=== PATIENT | female | born 1980 | race Caucasian/White ===

== ENCOUNTER 2016-07-06 13:35 | Emergency (ER) | payer OTHER, BC ==
[2016-07-06 13:56] VITALS: BP 122/93
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
== END 2016-07-06 14:30 | disposition home or self-care (01) ==
LOC: ER 13:35
DX: S16.1XXA Strain of muscle, fascia and tendon at neck level, initial encounter (principal); M79.1 Myalgia; M54.2 Cervicalgia; M54.9 Dorsalgia, unspecified; R51 Headache; V87.7XXA Person injured in collision between other specified motor vehicles (traffic), initial encounter
CPT/HCPCS: 99283